=== PATIENT | male | born 1985 ===

== ENCOUNTER 2022-06-05 14:58 | Emergency (ER) | payer SELFPAY ==
--- NOTE | 2022-06-05 15:00 | DI.RAD_ITS ---
Exam(s) XR HAND LT COMPLETE EXAM: XR HAND LT COMPLETE CLINICAL HISTORY: crushed between 2 pieces of heavy metal. TECHNIQUE: 2D digital imaging was performed. Three views. COMPARISON: No exams were available for comparison FINDINGS: BONES: There is a fracture extending transversely through the base of the proximal phalanx of the li ttle finger. There is no extension to the articular surface. There is medial and posterior angulati on. No additional fractures are seen. No bony destructive lesion is seen. JOINTS: No dislocation present. SOFT TISSUE: Normal. IMPRESSION: Fracture at the base of the proximal phalanx of the little finger. DATA REPOSITORY: RADIATION DOSE DELIVERED:
[2022-06-05 15:04] VITALS: BP 145/100; PULSE 105; RESP 18; TEMP 37; O2SAT 97
--- NOTE | 2022-06-05 15:14 | W.ED.GENAD ---
Discharge Plan Disposition Patient Disposition: HOME Condition: Stable Discharge Details Clinical Impression: Fracture of phalanx, proximal, left hand, Hand laceration Primary Care Provider: Unknown,Unknown ED Provider: Leatha Solorio Home Meds and New Rx's Prescriptions: New cephalexin 500 mg capsule 500 mg PO TID 3 Days Qty: 9 0RF Discharge Instructions Instructions: Laceration (ED), Finger Fracture (ED) Additional Instructions: Keep wound clean and dry. Cover wound with bandage if risk of contamination. Otherwise you can keep the wound open to air if resting at home to allow edges to dry and heal. Take the antibiotics as directed until finished. Rest, ice, and elevate the affected area as much as possible. Keep the giselle tape in place at all times. You can remove it to shower or wash your hands and then replace. Follow-up with orthopedics in 1 week. Return to the emergency department in 7 days for suture removal. Return immediately to the emergency department if you develop any worsening or new concerning symptoms. Referrals: Lenin Lopez MD [ [facility] STAFF PHYSICIAN] - Discharge Data Discharge Date/Time-TO BE ENTERED AT DEPARTURE: 06/05/22 17:43 Discharge Physician: Leatha Solorio Medical Decision Making 36yo right hand dominant male who presents to the ED w/ a c/o LEFT hand injury after crushed between 2 heavy metal machines at work at 1030 this morning. He has multiple small linear lacerations to the left hand with ulnar deviation of left 5th finger but no significant bony tenderness. He is neurovascularly intact. Will refer for imaging to rule out fracture versus foreign body. Tetanus ordered. Imaging noted a base of his left proximal fifth phalanx fracture with medial angulation. Imaging reviewed with Dr. Lopez who recommends reduction. A digital block was performed and reduction attempted at bedside with Dr. Lopez with some improvement. Giselle tape placed between left 4th and 5th fingers. Sutures placed in his left thumb and between left 4th and 5th webspace. Patient referred for postreduction film which noted some improvement. He was given a dose of Keflex here and a prescription to go. Dr. Lopez will follow up with patient in 1 week. Patient is here for the next 2 weeks for work and then is returning to [place] or [place]. He is advised to return to the ED in 7 days for suture removal. Usual and customary return precautions given prior to discharge. Medical Records Medical records reviewed: Yes I reviewed the patient's medical records. Imaging Data Radiologic Study: Radiologist's impression: XR HAND LT COMPLETE CLINICAL HISTORY: ? crushed between 2 pieces of heavy metal.? TECHNIQUE:? 2D digital imaging was performed.? Three views. COMPARISON:? No exams were available for comparison FINDINGS: BONES: There is a fracture? extending transversely through the base of the proximal phalanx of the little finger.? There is no extension to the articular surface.? There is medial and posterior angulation.? No additional fractures are seen.? No bony destructive lesion is seen. JOINTS: No dislocation present.? SOFT TISSUE: Normal. IMPRESSION: Fracture at the base of the proximal phalanx of the little finger. POST REDUCTION XR Left Finger(s) Exam date and time: 06/05/2022 5:04 PM Age: 36 years old Clinical indication: Injury or trauma; Other: Post reduction; Fracture, traumatic injury; Closed fracture; Left; Little finger TECHNIQUE: Imaging protocol: Radiologic exam of the Left fingers. Views: Minimum 2 views. COMPARISON: CR XR HAND LT COMPLETE 06/05/2022 3:23 PM FINDINGS: Bones/joints: Comminuted minimally displaced and impacted fracture at the base of the little finger proximal phalanx. No other acutely displaced skeletal fractures are identified. There is no evidence of joint dislocation. No aggressive osseous lesions. Soft tissues: Swelling at the little finger. IMPRESSION: Comminuted minimally displaced and impacted fracture at the base of the little finger proximal phalanx. HPI General Mode of arrival: ambulatory. Date/Time Provider Initiated Documentation: 06/05/22 15:00. Limitations to Documentation: no limitations. Information obtained by: patient. HPI Narrative: Patient is a 36-year-old right hand dominant male who presents with multiple left hand lacerations when caught between 2 pieces of heavy metal at work at 1030 this morning. Patient states there were no puncture wounds but they were too heavy pieces of metal and crushed his hand. Patient states he was not planning to come to the emergency department but was advised to come per his coworkers for evaluation. He states his last tetanus was 8 years ago. He has not taken any medication for pain. Related Data Home Medications Medication Instructions Recorded Confirmed cephalexin 500 mg capsule 500 mg PO TID 3 days #9 caps 06/05/22 Previous Rx's Medication Instructions Recorded cephalexin 500 mg capsule 500 mg PO TID 3 days #9 caps 06/05/22 Allergies Allergy/AdvReac Type Severity Reaction Status Date / Time No Known Allergies Allergy Unverified 06/05/22 15:06 General Stated Complaint: Orthopedic ANIA: 4 Review of Systems All systems reviewed & are unremarkable except as noted in HPI and below Constitutional Constitutional: Reports as per HPI, Denies chills and Denies fever(s) Eyes Eyes: Denies blurry vision ENT Ears, Nose, Mouth, and Throat: Denies dizziness, Denies sore throat and Denies throat swelling Cardiovascular Cardiovascular: Denies chest pain and Denies dyspnea Respiratory Respiratory: Denies cough and Denies dyspnea Gastrointestinal Gastrointestinal: Denies abdominal pain, Denies diarrhea and Denies vomiting Genitourinary Genitourinary: Denies hematuria and Denies dysuria Musculoskeletal Musculoskeletal: Denies back pain and Denies numbness Integumentary/Breasts Skin/Breast: Denies lesions and Denies rash Neurologic Neurologic: Denies dizziness, Denies localized weakness and Denies numbness Allergic/Immunologic Allergic/Immunologic: Denies throat swelling PFSH All Active Problems (Updated 06/05/22 @ 17:28 by Leatha Solorio DO) Hand laceration (Acute) Fracture of phalanx, proximal, left hand (Acute 06/05/22) Medical History No significant past medical history Surgical History No significant past surgical history Social History Smoking/Tobacco Use Status: Never Smoking risk assessment performed?: Yes Alcohol Intake: never Drug use: Never Substance use type: does not use Do you feel safe at home: Yes Do you feel safe in your relationship?: Yes Exam Const General: cooperative and healthy appearing Orientation: alert, awake and oriented x3 Neuro General: patient alert and patient awake Motor: strength 5/5 throughout Sensory Exam: no sensory deficits noted Other: Motor/sensory grossly intact left hand Extrem Hand/finger images: 1. 4mm linear laceration 2. 3mm superficial laceration 3. 1.5cm linear laceration 4. Ulnar deviation of finger Course Vital Signs Vital signs: Vital Signs Temperature 98.6 F 06/05/22 15:04 Pulse 105 H 06/05/22 15:04 Respiratory Rate 18 06/05/22 15:04 Blood Pressure 145/100 H 06/05/22 15:04 Pulse Oximetry 97 06/05/22 15:04 Temperature 98.6 F 06/05/22 15:04 Temperature Source Temporal Artery Scan 06/05/22 15:04 Pulse 105 H 06/05/22 15:04 Respiratory Rate 18 06/05/22 15:04 Respiratory Effort Non-Labored 06/05/22 15:07 Blood Pressure 145/100 H 06/05/22 15:04 Blood Pressure Position Sitting 06/05/22 15:04 Pulse Oximetry 97 06/05/22 15:04 Oxygen Delivery Method Room Air 06/05/22 15:04 Oxygen Flow Rate 0 06/05/22 15:04 Procedures Laceration Laceration 1: Site: hand (thumb) Side (If applicable): left Size (cm): 1.5 Description: linear Depth: simple, single layer Local Anesthetic: Lidocaine 1% Amount of anesthesia used (mL): 5 Pre-repair: wound explored, irrigated extensively and deep structures intact Skin layer closed with: nylon Size (cm): 5-0 Number of sutures: 5 Technique: simple, interrupted Laceration 2: Site: hand (4th and 5th webspace) Side (If applicable): left Size (cm): 3 Description: linear Depth: simple, single layer Local Anesthetic: Lidocaine 1% Pre-repair: wound explored, irrigated extensively and deep structures intact Skin layer closed with: nylon Size (cm): 5-0 Number of sutures: 1 Technique: simple, interrupted Orthopedic Fracture Reduction Fracture #1: Time Out Performed: Yes Side: left Fracture Reduction Location: finger (5th) Analgesia: digital block (4cc total lidocaine 1% without epinephrine, 2cc on each side of base of finger) Technique: direct manipulation (flexion to 90 degrees at MCP and manipulation of finger towards thumb) Post Reduction X-rays Demonstrate: acceptable reduction Post-reduction neuro exam: intact Post-reduction vascular exam: intact Splint Applied: Yes Patient Tolerated Procedure: well Orthopedic Splinting/Casting Injury #1: Side: left Upper Extremity Injury Location: finger (5th ) Upper Extremity Immobilizer: giselle tape (4th and 5th fingers)
[2022-06-05] MEDS: Ibuprofen 600 MG TAB PO (15:50)
--- NOTE | 2022-06-05 16:25 | OCONE_ITS ---
Date of service: 06/05/22 Time of Service: 16:25 History of Present Illness Narrative: 36-year-old male with left hand workplace traumatic crush and puncture injury with thumb small laceration and small finger base puncture wounds and deformity. Denies any numbness or tingling. No pre-existing hand issues or problems. [id number]. Working up here for the next 2 weeks then moving far for work on different rotations. Denies any significant medical problems. Non- smoker. No other tobacco. Consult Reason Displaced left hand small finger proximal phalanx fracture Assessment and Plan Assessment and plan (1) Fracture of phalanx, proximal, left hand: Status: Acute Assessment and plan: 36-year-old male with left hand small finger displaced extra?octave type proximal phalanx fracture and adjacent puncture wounds and thumb simple laceration Unlikely open fracture. Punctures near fracture but given fracture displacement would not classify as true open fracture. Possibly contaminated given industrial injury. Tetanus, antibiotics, and laceration repairs per ED provider. Fracture reduced under digital block with direct manipulation. Charles tape as instructed to ring finger. Post reduction x-rays pending. Alignment improved after reduction with relatively symmetrical resting position and no rotational deformity. My office will call Wednesday with an appointment to see me Wednesday or Wednesday for wound check and repeat x-rays. Discussed potential future need for additional reduction/manipulation and/or pinning. All questions answered. Patient agrees and understands. Discussed with Dr. Solorio Review of Systems Narrative: Negative except as HPI PFSH All Active Problems Fracture of phalanx, proximal, left hand (Acute 06/05/22) Medical History No significant past medical history Surgical History No significant past surgical history Social History Smoking/Tobacco Use Status: Never Smoking risk assessment performed?: Yes Alcohol Intake: never Drug use: Never Substance use type: does not use Do you feel safe at home: Yes Do you feel safe in your relationship?: Yes Exam Narrative Exam Narrative: Comfortable, no acute distress. Small 1 cm laceration dorsal thumb without any tendon involvement given intact flexion extension. Sensation intact throughout hand without paresthesias except for small finger, which has had local anesthetic digital block. Obvious proximal phalanx deformity with ulnar angulation. No rotational deformity. Small webspace puncture wounds. No fat droplets or continuous bleeding that would indicate open fracture. Brisk cap refill throughout. Results Last Vital Signs Temp 98.6 F 06/05/22 15:04 Pulse 105 H 06/05/22 15:04 Resp 18 06/05/22 15:04 BP 145/100 H 06/05/22 15:04 Pulse Ox 97 06/05/22 15:04 Procedures Orthopedic Fracture Reduction Left small finger prox phalanx: Time out performed: Yes (Verbally with patient and ED provider) Side: left Fracture reduction location: finger (Left small finger proximal phalanx) Analgesia: nerve block (Digital block done by Dr. Solorio) Technique: direct manipulation (Flexion to 90 degrees and manipulation reduction force radially across palm) Post-reduction x-rays demonstrate: other (X-rays pending. Well aligned grossly. ) Post-reduction neuro exam: other (Unable to assess given digital nerve block) Post-reduction vascular exam: intact (Maintain brisk cap refill) Splint applied: Yes (Charles tape to be applied as instructed after suture repair of lacerations) Patient tolerated procedure: well and no complications Additional comments: CPT# 49351
--- NOTE | 2022-06-05 16:30 | DI.RAD_ITS ---
Exam(s) XR FINGER LT LITTLE EXAM: XR FINGER LT LITTLE EXAM DATE/TIME: CLINICAL HISTORY: post reduction film. TECHNIQUE: 2D digital imaging was performed of the left finger. Four views were obtained. PA/AP, o blique, and lateral views were obtained. COMPARISON: Priors available for comparison. FINDINGS: BONES: There has been improved alignment of the fracture involving the proximal phalanx of the left l ittle finger. No bony destructive lesion is seen. JOINTS: No dislocation is present. SOFT TISSUE: Soft tissue swelling is present. IMPRESSION: Improved alignment of the proximal phalangeal fracture. DATA REPOSITORY: RADIATION DOSE DELIVERED:
--- NOTE | 2022-06-05 16:31 | PDOC.ERCMPRO ---
- If Service Date Differs Date of service: 06/05/22 Time of Service: 16:31 Care Management Progress Note SBIRT screen: (AUDIT 9) low risk alcohol use weekly, BI. Pt reports no other substance use or mental health symptoms.
[2022-06-05 17:43] VITALS: PULSE 72; RESP 14; O2SAT 98
--- NOTE | 2022-06-05 17:52 | DI.VRAD_ITS ---
PROCEDURE INFORMATION: Exam: XR Left Finger(s) Exam date and time: 06/05/2022 5:04 PM Age: 36 years old Clinical indication: Injury or trauma; Other: Post reduction; Fracture, traumatic injury; Closed fracture; Left; Little finger TECHNIQUE: Imaging protocol: Radiologic exam of the Left fingers. Views: Minimum 2 views. COMPARISON: CR XR HAND LT COMPLETE 06/05/2022 3:23 PM FINDINGS: Bones/joints: Comminuted minimally displaced and impacted fracture at the base of the little finger proximal phalanx. No other acutely displaced skeletal fractures are identified. There is no evidence of joint dislocation. No aggressive osseous lesions. Soft tissues: Swelling at the little finger. IMPRESSION: Comminuted minimally displaced and impacted fracture at the base of the little finger proximal phalanx. Dictated and Authenticated by: Everton Flower MD. Ordering:CALLIE Zhang MD
== END 2022-06-05 17:43 | disposition home or self-care (01) ==
PROVIDERS: Emergency Provider Physician Assistant
DX: S67.22XA Crushing injury of left hand, initial encounter (principal); S62.617A Displaced fracture of proximal phalanx of left little finger, initial encounter for closed fracture; S61.412A Laceration without foreign body of left hand, initial encounter; Y99.0 Civilian activity done for income or pay; W23.0XXA Caught, crushed, jammed, or pinched between moving objects, initial encounter; Z23 Encounter for immunization
CPT/HCPCS: 12002; 26725; 90471; 99283; 73130; 73140; 99284; J3490